=== PATIENT | male | born 1990 | race African-American/Black ===

== ENCOUNTER 2020-11-19 17:34 | Emergency (ER) | payer OTHER ==
[~2020-11-19] VITALS: Ht 157.5 cm; Wt 68.0 kg
[2020-11-19 17:46] VITALS: BP 136/88; TEMP 98.4
== END 2020-11-19 18:48 | disposition home or self-care (01) ==
LOC: ED 17:34
PROC: 0HQGXZZ Repair Left Hand Skin, External Approach (ICD-10-PCS; principal; 2020-11-19)
DX: S61.211A Laceration without foreign body of left index finger without damage to nail, initial encounter (principal); W26.0XXA Contact with knife, initial encounter; Y92.89 Other specified places as the place of occurrence of the external cause
CPT/HCPCS: 90471; 90715; 96372; 99283; J0690